=== PATIENT | male | born 1950 | race American Indian/Alaskan Native ===

== ENCOUNTER 2017-07-08 13:08 | Emergency (ER) | payer OTHER ==
[2017-07-08] MEDS ORDERED: Sodium Chloride 0.9% 10 ML Syringe FLUSH PRN (13:20)
[2017-07-08] MEDS ORDERED: Sodium Chloride 0.9% 2.5 ML Syringe FLUSH PRN (13:20)
[2017-07-08] MEDS ORDERED: Morphine 4 MG/ML Syringe IVPUSH ONE ×4 (13:23→17:06)
[2017-07-08] MEDS ORDERED: Ondansetron 4 MG/2 ML SDV IVPUSH ONE (13:24)
--- NOTE | 2017-07-08 13:28 | EDM.PDOC ---
ED HPI GENERAL MEDICAL PROBLEM - General Chief Complaint: Abdominal Pain Stated Complaint: AMB Time Seen by Provider: 07/08/17 13:15 Source of Information: Reports: Patient History Limitations: Reports: No Limitations - History of Present Illness INITIAL COMMENTS - FREE TEXT/NARRATIVE: HISTORY AND PHYSICAL: History of present illness: [This is a 66-year-old male brought in by EMS for right upper quadrant abdominal pain 3 days. Fentanyl 100mcg and zofran 4mg given in transport. Patient has a history of pancreatitis and biliary stent. Patient is somewhat of a poor historian. He states the abdominal pain is worse today. He denies fevers , vomiting, or diarrhea. He denies any recent alcohol use. He denies chest pain , cough, shortness breath] Review of systems: As per history of present illness and below otherwise all systems reviewed and negative. Past medical history: As per history of present illness and as reviewed below otherwise noncontributory. Surgical history: As per history of present illness and as reviewed below otherwise noncontributory. Social history: No reported history of drug or alcohol abuse. Family history: As per history of present illness and as reviewed below otherwise noncontributory. Physical exam: HEENT: Atraumatic, normocephalic, pupils reactive, negative for conjunctival pallor or scleral icterus, mucous membranes moist, throat clear, neck supple, nontender, trachea midline. Lungs: Clear to auscultation, breath sounds equal bilaterally, chest nontender. Heart: S1S2, irregular, negative for clicks, rubs, or JVD. Abdomen: Significant tenderness to light palpation to the epigastric and right upper quadrant. Abdomen mildly distended. Pelvis: Stable nontender. Genitourinary: Deferred. Rectal: Deferred. Extremities: Atraumatic, negative for cords or calf pain. Neurovascular unremarkable. Neuro: Awake, alert, oriented. Cranial nerves II through XII unremarkable. Cerebellum unremarkable. Motor and sensory unremarkable throughout. Exam nonfocal. Diagnostics: [EKG CT abdomen and pelvis with contrast CBC, CMP, lipase, amylase, EtOH.] Therapeutics: [Morphine 2 mg Zofran 4 mg Diltiazem 20 mg] Impression: [New onset atrial fibrillation Abdominal pain, right upper quadrant Hepatic mass] Plan: Patient evaluated by Dr. Dukes in ED and is being transferred to [facility] in [place], [place]. Definitive disposition and diagnosis as appropriate pending reevaluation and review of above. Onset: Sudden Duration: Day(s): (3), Getting Worse Location: Reports: Abdomen Quality: Reports: Sharp Severity: Severe Improves with: Reports: None Worsens with: Reports: None Associated Symptoms: Denies: Chest Pain, Cough, Diaphoresis, Fever/Chills, Nausea/Vomiting, Shortness of Breath Right Lower Abdomen Pain Score (Numeric/FACES): 8 - Related Data Allergies Allergy/AdvReac Type Severity Reaction Status Date / Time No Known Allergies Allergy Verified 01/14/16 11:03 Home Meds: Home Meds Another Bp Med 07/08/17 [History] Losartan [Cozaar] 100 mg PO DAILY 07/08/17 [History] Past Medical History Cardiovascular History: Reports: Hypertension Gastrointestinal History: Reports: GI Bleed Psychiatric History: Reports: Anxiety, Depression - Past Surgical History Other GI Surgeries/Procedures: pancreatic shunt Social & Family History - Family History Family Medical History: Unobtainable - Tobacco Use Smoking Status *Q: Never Smoker - Caffeine Use Caffeine Use: Reports: None - Recreational Drug Use Recreational Drug Use: No ED ROS GENERAL - Review of Systems Review Of Systems: ROS reveals no pertinent complaints other than HPI. ED EXAM, GI/ABD - Physical Exam Exam: See Below (see dictation) Course - Vital Signs Last Recorded V/S: Last Vital Signs Temp 36.1 C 07/08/17 13:19 Pulse 107 H 07/08/17 16:19 Resp 18 07/08/17 16:19 BP 119/79 07/08/17 16:19 Pulse Ox 96 07/08/17 16:19 - Orders/Labs/Meds Orders: Active Orders 24 hr Category Date Time Status EKG Documentation Completion [RC] STAT Care 07/08/17 14:47 Active Abdomen Pelvis w Cont [CT] Stat Exams 07/08/17 13:22 Taken AMMONIA VENOUS [CHEM] Stat Lab 07/08/17 16:02 Ordered CULTURE BLOOD [BC] Stat Lab 07/08/17 16:28 Ordered CULTURE BLOOD [BC] Stat Lab 07/08/17 16:28 Ordered LACTIC ACID,WHOLE BLOOD [BG] Stat Lab 07/08/17 16:36 Ordered Piperacillin/Tazobactam [Piperacil-Tazobact] 4.5 gm Med 07/08/17 16:15 Active Sodium Chloride 0.9% [Normal Saline] 100 ml IV Q6H Sodium Chloride 0.9% [Normal Saline] 1,000 ml Med 07/08/17 16:29 Active IV .Bolus Sodium Chloride 0.9% [Saline Flush] Med 07/08/17 13:20 Active 10 ml FLUSH ASDIRECTED PRN Sodium Chloride 0.9% [Saline Flush] Med 07/08/17 13:20 Active 2.5 ml FLUSH ASDIRECTED PRN Vancomycin 1,000 mg Med 07/08/17 16:27 Active Dextrose 5% in Water 250 ml IV ONETIME Blood Culture x2 Reflex Set [OM.PC] Stat Oth 07/08/17 16:28 Ordered Saline Lock Insert [OM.PC] Stat Oth 07/08/17 13:20 Ordered Medication Orders Piperacillin Sod/Tazobactam (Sod 4.5 gm/ Sodium Chloride) 100 mls @ 100 mls/hr IV Q6H VIVIENNE Last Admin: 07/08/17 17:00 Dose: 100 mls/hr Vancomycin HCl 1,000 mg/ (Dextrose/Water) 250 mls @ 167 mls/hr IV ONETIME ONE Stop: 07/08/17 17:56 Sodium Chloride (Normal Saline) 1,000 mls @ 999 mls/hr IV .Bolus ONE Stop: 07/08/17 17:29 Last Admin: 07/08/17 16:55 Dose: 999 mls/hr Sodium Chloride (Saline Flush) 10 ml FLUSH ASDIRECTED PRN PRN Reason: Keep Vein Open Sodium Chloride (Saline Flush) 2.5 ml FLUSH ASDIRECTED PRN PRN Reason: Keep Vein Open Labs: Laboratory Tests 07/08/17 07/08/17 Range/Units 13:28 13:28 WBC 14.47 H (4.0-11.0) K/uL RBC 3.67 L (4.50-5.90) M/uL Hgb 11.7 L (13.0-17.0) g/dL Hct 35.0 L (38.0-50.0) % MCV 95.4 (80.0-98.0) fL MCH 31.9 (27.0-32.0) pg MCHC 33.4 (31.0-37.0) g/dL RDW Std Deviation 61.6 (28.0-62.0) fl RDW Coeff of Lucita 18 H (11.0-15.0) % Plt Count 95 L (150-400) K/uL MPV 12.70 H (7.40-12.00) fL Add Manual Diff YES Neutrophils % (Manual) 71 (48.0-80.0) % Band Neutrophils % 16 % Lymphocytes % (Manual) 9 L (16.0-40.0) % Monocytes % (Manual) 4 (0.0-15.0) % Nucleated RBC % 0.2 /100WBC Absolute Seg Neuts 10.3 H (1.4-5.7) Band Neutrophils # 2.3 Lymphocytes # (Manual) 1.3 (0.6-2.4) Monocytes # (Manual) 0.6 (0.0-0.8) Nucleated RBCs # 0 K/uL Sodium 137 (136-148) mmol/L Potassium 3.3 L (3.5-5.1) mmol/L Chloride 102 (98-107) mmol/L Carbon Dioxide 14.8 L (21.0-32.0) mmol/L BUN 52 H (7.0-18.0) mg/dL Creatinine 1.4 H (0.8-1.3) mg/dL Est Cr Clr Drug Dosing TNP Estimated GFR (MDRD) 51.0 ml/min Glucose 226 H (74-106) mg/dL Calcium 9.5 (8.5-10.1) mg/dL Total Bilirubin 2.3 H (0.2-1.0) mg/dL AST 48 H (15-37) IU/L ALT 77 H (14-63) IU/L Alkaline Phosphatase 562 H (46-116) U/L Total Protein 6.4 (6.4-8.2) g/dL Albumin 2.0 L (3.4-5.0) g/dL Globulin 4.4 H (2.0-3.5) g/dL Albumin/Globulin Ratio 0.5 L (1.3-2.8) Amylase 9 L (25-115) U/L Lipase 54 L (73-393) U/L Ethyl Alcohol <3 mg/dL Meds: Medications Generic Name Dose Route Start Last Admin Trade Name Freq PRN Reason Stop Dose Admin Piperacillin Sod/Tazobactam 100 mls @ 100 mls/hr 07/08/17 16:15 07/08/17 17: 00 Sod 4.5 gm/ Sodium Chloride IV 100 mls/hr Q6H VIVIENNE Administration Vancomycin HCl 1,000 mg/ 250 mls @ 167 mls/hr 07/08/17 16:27 Dextrose/Water IV 07/08/17 17:56 ONETIME ONE Sodium Chloride 1,000 mls @ 999 mls/hr 07/08/17 16:29 07/08/17 16:55 Normal Saline IV 07/08/17 17:29 999 mls/hr .Bolus ONE Administration Sodium Chloride 10 ml 07/08/17 13:20 Saline Flush FLUSH ASDIRECTED PRN Keep Vein Open Sodium Chloride 2.5 ml 07/08/17 13:20 Saline Flush FLUSH ASDIRECTED PRN Keep Vein Open Discontinued Medications Generic Name Dose Route Start Last Admin Trade Name Freq PRN Reason Stop Dose Admin Diltiazem HCl 20 mg 07/08/17 15:31 07/08/17 15:34 Diltiazem IVPUSH 07/08/17 15:32 20 mg ONETIME ONE Administration Diltiazem HCl Confirm 07/08/17 15:32 07/08/17 15:35 Diltiazem Administered 07/08/17 15:33 Not Given Dose 25 mg .ROUTE .STK-MED ONE Sodium Chloride 1,000 mls @ 999 mls/hr 07/08/17 14:00 07/08/17 14:08 Normal Saline IV 07/08/17 15:00 999 mls/hr STAT ONE Administration Iopamidol 75 ml 07/08/17 15:45 07/08/17 15:46 Isovue Multipack-370 (76%) IVPUSH 07/08/17 15:46 75 ml ONETIME STA Administration Morphine Sulfate 2 mg 07/08/17 13:23 07/08/17 13:30 Morphine IVPUSH 07/08/17 13:24 2 mg ONETIME ONE Administration Morphine Sulfate 2 mg 07/08/17 14:47 07/08/17 14:52 Morphine IVPUSH 07/08/17 14:48 2 mg ONETIME ONE Administration Morphine Sulfate 4 mg 07/08/17 17:06 Morphine IVPUSH 07/08/17 17:07 ONETIME ONE Ondansetron HCl 4 mg 07/08/17 13:24 07/08/17 13:30 Zofran IVPUSH 07/08/17 13:25 4 mg ONETIME ONE Administration Piperacillin Sod/Tazobactam Sod Confirm 07/08/17 16:59 07/08/17 17:03 Piperacil-Tazobact Administered 07/08/17 17:00 Not Given Dose 4.5 gm .ROUTE .STK-MED ONE Departure - Departure Time of Disposition: 17:08 Disposition: DC/Tfer to Acute Hospital 02 Condition: Undetermined Clinical Impression: Abdominal pain - Discharge Information Referrals: PCP,None [Primary Care Provider] - Forms: ED Department Discharge - My Orders Last 24 Hours: My Active Orders 07/08/17 13:20 Sodium Chloride 0.9% [Saline Flush] 10 ml FLUSH ASDIRECTED PRN Sodium Chloride 0.9% [Saline Flush] 2.5 ml FLUSH ASDIRECTED PRN Saline Lock Insert [OM.PC] Stat 07/08/17 13:22 Abdomen Pelvis w Cont [CT] Stat 07/08/17 14:47 EKG Documentation Completion [RC] STAT 07/08/17 16:02 AMMONIA VENOUS [CHEM] Stat - Assessment/Plan Last 24 Hours: My Active Orders 07/08/17 13:20 Sodium Chloride 0.9% [Saline Flush] 10 ml FLUSH ASDIRECTED PRN Sodium Chloride 0.9% [Saline Flush] 2.5 ml FLUSH ASDIRECTED PRN Saline Lock Insert [OM.PC] Stat 07/08/17 13:22 Abdomen Pelvis w Cont [CT] Stat 07/08/17 14:47 EKG Documentation Completion [RC] STAT 07/08/17 16:02 AMMONIA VENOUS [CHEM] Stat
[2017-07-08 13:57] LABS: CHLORIDE,CL 102 mmol/L (98-107); SODIUM,NA 137 mmol/L (136-148)
[2017-07-08] MEDS ORDERED: Sodium Chloride 0.9% 1,000 ML IV ONE ×2 (14:00→16:29)
[2017-07-08] MEDS ORDERED: Diltiazem 25 MG/5 ML SDV IVPUSH ONE (15:31)
[2017-07-08] MEDS ORDERED: Diltiazem 25 MG/5 ML SDV ONE (15:32)
[2017-07-08] MEDS ORDERED: Iopamidol 755 MG/ML 200 ML Multipack Bottle IVPUSH STA (15:45)
[2017-07-08] MEDS ORDERED: Piperacillin/Tazobactam 4.5 GM in Sodium Chloride 0.9% 100 ML IV SCH (16:15)
--- NOTE | 2017-07-08 16:36 | PCM.CONS ---
H&P History of Present Illness - History of Present Illness Initial Comments - Free Text/Narative: 66 yo male with pmh of biliary stent placement in 2016. 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 He has been following up with [facility] in [place] and he stated he was supposed to have his stent looked at in 2017 but was not referred. He presents to the ED today with four days of abdominal pain, fevers, and chills. He was noted to have new onset atrial fibrillation with HR in 100s-120s. Labs were significant for WBC of 14,470, total bilirubin of 2.3, AST 48, ALt 47, Alk phos of 562, and Lipase of 54. CT of abdomen reported biliary stent with intrahepatic biliary dilation with atrophy of the left lobe of the liver. minimal amount of perihatpitic ascites with small amount of fluid in the right pericolic gutter. New 6.2, by 5.7 centimeter lesion with the right inferior lobe of the liver suspicious for malignancy. Right Lower Abdomen Pain Score (Numeric/FACES): 9 - Related Data Allergies/Adverse Reactions: Allergies Allergy/AdvReac Type Severity Reaction Status Date / Time No Known Allergies Allergy Verified 01/14/16 11:03 Home Medications: Home Meds Another Bp Med 07/08/17 [History] Losartan [Cozaar] 100 mg PO DAILY 07/08/17 [History] Past Medical History Cardiovascular History: Reports: Hypertension Respiratory History: Reports: Pneumonia, Recurrent Gastrointestinal History: Reports: GI Bleed Psychiatric History: Reports: Anxiety, Depression - Past Surgical History Other GI Surgeries/Procedures: pancreatic shunt Social & Family History - Family History Family Medical History: Unobtainable - Tobacco Use Smoking Status *Q: Never Smoker - Caffeine Use Caffeine Use: Reports: None - Recreational Drug Use Recreational Drug Use: No H&P Review of Systems - Review of Systems: Review Of Systems: ROS reveals no pertinent complaints other than HPI. Exam - Exam Exam: See Below - Vital Signs Vital Signs: Last Vital Signs Temp 36.1 C 07/08/17 13:19 Pulse 107 H 07/08/17 16:19 Resp 18 07/08/17 16:19 BP 119/79 07/08/17 16:19 Pulse Ox 96 07/08/17 16:19 Weight: 77.111 kg - Exam General: Alert, Oriented HEENT: Mucosa Moist & [place] Neck: Supple, Trachea Midline Lungs: Clear to Auscultation, Normal Respiratory Effort Cardiovascular: Regular Rate, Irregular Rhythm GI/Abdominal Exam: Normal Bowel Sounds, Tender Extremities: No Pedal Edema - Patient Data Lab Results Last 24 hrs: Laboratory Results - last 24 hr 07/08/17 07/08/17 Range/Units 13:28 13:28 WBC 14.47 H (4.0-11.0) K/uL RBC 3.67 L (4.50-5.90) M/uL Hgb 11.7 L (13.0-17.0) g/dL Hct 35.0 L (38.0-50.0) % MCV 95.4 (80.0-98.0) fL MCH 31.9 (27.0-32.0) pg MCHC 33.4 (31.0-37.0) g/dL RDW Std Deviation 61.6 (28.0-62.0) fl RDW Coeff of Lucita 18 H (11.0-15.0) % Plt Count 95 L (150-400) K/uL MPV 12.70 H (7.40-12.00) fL Add Manual Diff YES Neutrophils % (Manual) 71 (48.0-80.0) % Band Neutrophils % 16 % Lymphocytes % (Manual) 9 L (16.0-40.0) % Monocytes % (Manual) 4 (0.0-15.0) % Nucleated RBC % 0.2 /100WBC Absolute Seg Neuts 10.3 H (1.4-5.7) Band Neutrophils # 2.3 Lymphocytes # (Manual) 1.3 (0.6-2.4) Monocytes # (Manual) 0.6 (0.0-0.8) Nucleated RBCs # 0 K/uL Sodium 137 (136-148) mmol/L Potassium 3.3 L (3.5-5.1) mmol/L Chloride 102 (98-107) mmol/L Carbon Dioxide 14.8 L (21.0-32.0) mmol/L BUN 52 H (7.0-18.0) mg/dL Creatinine 1.4 H (0.8-1.3) mg/dL Est Cr Clr Drug Dosing TNP Estimated GFR (MDRD) 51.0 ml/min Glucose 226 H (74-106) mg/dL Calcium 9.5 (8.5-10.1) mg/dL Total Bilirubin 2.3 H (0.2-1.0) mg/dL AST 48 H (15-37) IU/L ALT 77 H (14-63) IU/L Alkaline Phosphatase 562 H (46-116) U/L Total Protein 6.4 (6.4-8.2) g/dL Albumin 2.0 L (3.4-5.0) g/dL Globulin 4.4 H (2.0-3.5) g/dL Albumin/Globulin Ratio 0.5 L (1.3-2.8) Amylase 9 L (25-115) U/L Lipase 54 L (73-393) U/L Ethyl Alcohol <3 mg/dL Result Diagrams: 07/08/17 13:28 07/08/17 13:28 Consult PN Assessment/Plan Procedures: Procedures ASSAY OF LIPASE (01/14/16) ASSAY OF NATRIURETIC PEPTIDE (01/14/16) ASSAY OF TROPONIN QUANT (01/14/16) CHEST X-RAY 2VW FRONTAL&LATL (01/14/16) COMPLETE CBC W/AUTO DIFF WBC (01/14/16) COMPREHEN METABOLIC PANEL (01/14/16) CT ABD & PELVIS W/O CONTRAST (01/14/16) ELECTROCARDIOGRAM TRACING (01/14/16) EMERGENCY DEPT VISIT (01/14/16) EVALUATE PT USE OF INHALER (01/14/16) HYDRATE IV INFUSION ADD-ON (01/14/16) ROUTINE VENIPUNCTURE (01/14/16) THER/PROPH/DIAG INJ IV PUSH (01/14/16) TX/PRO/DX INJ NEW DRUG ADDON (01/14/16) URINALYSIS AUTO W/SCOPE (01/14/16) Problem List Initiated/Reviewed/Updated: Yes My Orders Last 24 Hours: My Active Orders 07/08/17 16:15 Piperacillin/Tazobactam [Piperacil-Tazobact] 4.5 gm Sodium Chloride 0.9% [ Normal Saline] 100 ml IV Q6H 07/08/17 16:27 Vancomycin 1,000 mg Dextrose 5% in Water 250 ml IV ONETIME 07/08/17 16:28 CULTURE BLOOD [BC] Stat CULTURE BLOOD [BC] Stat Blood Culture x2 Reflex Set [OM.PC] Stat 07/08/17 16:29 Sodium Chloride 0.9% [Normal Saline] 1,000 ml IV .Bolus Plan: 66 yo male with pmh of biliary stent in 2016 presenting with abdominal pain, subjective fevers, new onset atrial fibrillation, leukocytosis and elevatated LFTs suspicious for sepsis with colangitis. Blood cultures were obtained, he was given zosyn, vancomycin and fluid bolus. I talked with Dr. Acevedo the GI specialist in [facility] who recommended transferring for removal and replacement of biliary stent. I spoke with Dr. Akins who has accepted the patient. Ground transportation was arranged.
[2017-07-08] MEDS ORDERED: Piperacillin/Tazobactam 4.5 GM AdvVial ONE (16:59)
[2017-07-08 17:12] VITALS: BP 116/79
[2017-07-08] MEDS ORDERED: Vancomycin 1 GM AdvVial ONE (17:46)
[2017-07-08] MEDS ORDERED: Sodium Chloride 0.9% 250 ML ONE (17:47)
--- NOTE | 2017-07-09 15:57 | CT ---
EXAM DATE: 07/08/17 PATIENT'S AGE: 66 Patient: GIFTY BARRON Facility: [place], [place] Site . Site : 1950 Study: CT Abdomen/Pelvis [id number] 2:51:12 PM Ordering Physician: Doctor Aleman Final Report: Pain. Technique contrast-enhanced CT abdomen and pelvis with coronal sagittal reformatted images obtained. 75 mL Isovue-370 COMPARISON: CT report is available from a CT scan dated 01/14/2016. No images are available. Findings: Emphysema. Basilar atelectasis. No significant effusion. Intrahepatic biliary dilatation with atrophy of the left lobe of the liver. By report this was present on the prior study. Biliary stent present with air within the biliary stent. New mass measuring 6.2 x 5.7 centimeters in the right inferior lobe of the liver. Small amount of perihepatic ascites. Spleen is enlarged measuring 16.7 cm. Pancreas, adrenal glands are unremarkable. The kidneys appear unremarkable. Atherosclerotic calcification of the abdominal aorta non aneurysmal. Small aortocaval retroperitoneal nodes present. Urinary bladder is unremarkable. Prostate gland is unremarkable. There is diverticulosis is. Normal appendix. Small amount of fluid within the right pericolic gutter. There may be some mild right sided mesenteric edema. No suspicious bony lesions. Impression : 1. New 6.2 x 5.7 centimeter lesion within the right inferior lobe of the liver suspicious for malignancy tissue sampling would be recommended. 2. Intrahepatic biliary dilatation with atrophy of the left lobe of the liver by report was present. Biliary stent. 3. Minimal amount of perihepatic ascites with small amount of fluid in the right pericolic gutter. Small aortocaval retroperitoneal nodes. 4. Splenomegaly. 5. Diverticulosis. Please note that all CT scans at this facility use dose modulation, iterative reconstruction, and/or weight-based dosing when appropriate to reduce radiation dose to as low as reasonably achievable. Dictated by Janee Pimentel MD @ Jul 08 2017 2:56PM (Electronic Signature) Report Signed by Proxy. [facility]OSPITALOlivia
== END 2017-07-08 18:00 ==
LOC: MW.ED 13:08
DX: R10.11 Right upper quadrant pain (principal); I48.91 Unspecified atrial fibrillation; R16.0 Hepatomegaly, not elsewhere classified; I10 Essential (primary) hypertension; Z79.899 Other long term (current) drug therapy
CPT/HCPCS: 36415; 74177; 80053; 82140; 82150; 83605; 83690; 85025; 87040; 87186; 93005; 96361; 96365; 96375; 96376; 99285; G0480; J2270; J2405; J2543; J3370; J3490; J7030; J7040; J7060; Q9967; 99283

== ENCOUNTER 2021-07-26 11:34 | Emergency (ER) | payer MEDICARE, OTHER ==
[2021-07-26 14:24] VITALS: BP 151/85; PULSE 74
== END 2021-07-26 12:20 | disposition home or self-care (01) ==
LOC: MW.ED 11:34
DX: Z13.9 Encounter for screening, unspecified (principal); I10 Essential (primary) hypertension; I48.91 Unspecified atrial fibrillation; F41.9 Anxiety disorder, unspecified; K21.9 Gastro-esophageal reflux disease without esophagitis; Z79.899 Other long term (current) drug therapy; Z88.6 Allergy status to analgesic agent; Z91.018 Allergy to other foods
CPT/HCPCS: 93005; 93010; 99282; 99284-25

== ENCOUNTER 2021-09-27 14:57 | Emergency (ER) | payer MEDICARE, OTHER ==
[2021-09-27] MEDS ORDERED: Ondansetron 4 MG/2 ML SDV IVPUSH ONE (15:00)
[2021-09-27] MEDS ORDERED: Morphine 4 MG/ML VIAL IVPUSH ONE (15:00)
[2021-09-27] MEDS ORDERED: Sodium Chloride 0.9% 1,000 ML IV ONE (15:00)
[2021-09-27 15:08] VITALS: BP 96/59; PULSE 64
[2021-09-27 15:43] LABS: CARBON DIOXIDE,CO2 24.7 mmol/L (21.0-32.0); POTASSIUM,K 3.8 mmol/L (3.5-5.1)
[2021-09-27] MEDS ORDERED: Iopamidol 755 MG/ML 500 ML Multipack Bottle IVPUSH STA (16:08)
[2021-09-27] MEDS ORDERED: HYDROmorphone 1 MG/ML Syringe IVPUSH ONE (16:45)
[2021-09-27] MEDS ORDERED: Dextrose 5%-Lactated Ringers 1,000 ML IV SCH (17:00)
== END 2021-09-27 17:07 | disposition left against medical advice (07) ==
LOC: MW.ED 14:57
DX: K40.90 Unilateral inguinal hernia, without obstruction or gangrene, not specified as recurrent (principal); K21.9 Gastro-esophageal reflux disease without esophagitis; I10 Essential (primary) hypertension; Z90.49 Acquired absence of other specified parts of digestive tract; Z79.899 Other long term (current) drug therapy; Z88.6 Allergy status to analgesic agent; Z91.018 Allergy to other foods
CPT/HCPCS: 36415; 74177; 80053; 80307; 83605; 85025; 93005; 96374; 96375; 99284; J2270; J2405; J7030; Q9967

== ENCOUNTER 2021-11-02 06:33 | Day surgery (SDC) | payer MEDICARE, OTHER ==
[~2021-11-02 06:33] MED LIST: Acetaminophen 1,000 MG in Premix Bag 1 BAG IV SCH; Albuterol 0.083% 2.5 MG/3 ML Neb Soln NEB PRN; HYDROmorphone 1 MG/ML Syringe IVPUSH PRN; Lactated Ringers 1,000 ML IV SCH; Metoclopramide 10 MG/2 ML SDV IVPUSH PRN; Morphine 4 MG/ML VIAL IVPUSH PRN; Naloxone 0.4 MG/ML SDV IVPUSH PRN; Ondansetron 4 MG/2 ML SDV IVPUSH PRN; Pregabalin 75 MG Cap PO SCH; ceFAZolin 2 GM in Premix Bag 1 BAG IV SCH; fentaNYL 50 MCG/ML SDV IVPUSH PRN
[2021-11-02] MEDS ORDERED: Ropivacaine 0.5% 5 MG/ML 30 ML SDV ONE (07:22)
[2021-11-02] MEDS ORDERED: Bupivacaine 0.25%/EPINEPHrine 1:200,000 10 ML SDV ONE (07:22)
[2021-11-02] MEDS ORDERED: Bupivacaine 0.5% 30 ML SDV ONE (07:24)
[2021-11-02] MEDS ORDERED: Octyl 2-Cyanoacrylate 1 Tube ONE (07:25)
[2021-11-02] MEDS ORDERED: Propofol 200 MG/20 ML SDV ONE (07:33)
[2021-11-02] MEDS ORDERED: fentaNYL 250 MCG/5 ML SDV ONE (07:33)
[2021-11-02] MEDS ORDERED: fentaNYL 100 MCG/2 ML SDV ONE (08:47)
[2021-11-02] MEDS ORDERED: propofoL 100 ML ONE (09:52)
[2021-11-02] MEDS ORDERED: HYDROmorphone 2 MG/ML Syringe ONE (09:53)
[2021-11-02 11:26] VITALS: BP 148/78; PULSE 59
== END 2021-11-02 11:45 | disposition home or self-care (01) ==
LOC: MW.SDS 06:33
PROVIDERS: ATTEND Surgery
DX: K40.90 Unilateral inguinal hernia, without obstruction or gangrene, not specified as recurrent (principal); F17.210 Nicotine dependence, cigarettes, uncomplicated; F41.9 Anxiety disorder, unspecified; N40.0 Benign prostatic hyperplasia without lower urinary tract symptoms; K21.9 Gastro-esophageal reflux disease without esophagitis; I10 Essential (primary) hypertension; I48.91 Unspecified atrial fibrillation; M06.9 Rheumatoid arthritis, unspecified; Z88.8 Allergy status to other drugs, medicaments and biological substances; Z79.899 Other long term (current) drug therapy
CPT/HCPCS: 00830; 64486; 88302; A9270-GY; C1781; J0131; J0690; J1170; J2704; J2795; J3010; J3490; J7120

== ENCOUNTER 2022-01-14 18:08 | Emergency (ER) | payer MEDICAID, MEDICARE, OTHER ==
[2022-01-14] MEDS ORDERED: Morphine 4 MG/ML Syringe IVPUSH ONE (18:30)
[2022-01-14] MEDS ORDERED: Ondansetron 4 MG/2 ML SDV IVPUSH ONE (18:30)
[2022-01-14] MEDS ORDERED: Sodium Chloride 0.9% 1,000 ML IV ONE (18:30)
[2022-01-14 18:42] LABS: POTASSIUM,K 3.6 mmol/L (3.5-5.1)
[2022-01-14] MEDS ORDERED: Iopamidol 755 MG/ML 500 ML Multipack Bottle IVPUSH ONE (19:14)
[2022-01-14 20:04] VITALS: BP 142/68; PULSE 77
== END 2022-01-14 20:03 | disposition home or self-care (01) ==
LOC: MW.ED 18:08
DX: K59.00 Constipation, unspecified (principal); I48.91 Unspecified atrial fibrillation; I10 Essential (primary) hypertension; Z91.018 Allergy to other foods; Z88.8 Allergy status to other drugs, medicaments and biological substances; Z79.899 Other long term (current) drug therapy
CPT/HCPCS: 36415; 74177; 80053; 80307; 83605; 83690; 83735; 84484; 85025; 96361; 96374; 96375; 99285; J2270; J2405; J7030; Q9967; 99284

== ENCOUNTER 2022-08-13 17:52 | Emergency (ER) | payer MEDICARE, OTHER ==
[2022-08-13] MEDS ORDERED: Sodium Chloride 0.9% 10 ML Syringe FLUSH PRN (18:04)
[2022-08-13] MEDS ORDERED: Sodium Chloride 0.9% 2.5 ML Syringe FLUSH PRN (18:04)
[2022-08-13 18:10] LABS: BASOPHILS ABSOLUTE AUTO 0.1 K/uL (0.0-0.1); BASOPHILS PERCENT AUTO 0.8 % (0.0-1.5); EOSINOPHILS ABSOLUTE AUTO 0.1 K/uL (0.0-0.7); EOSINOPHILS PERCENT AUTO 0.9 % (0.0-7.0); HEMATOCRIT 37.9 % (38.0-50.0); HEMOGLOBIN 12.8 g/dL (13.0-17.0); LYMPHOCYTES ABSOLUTE AUTO 1.6 K/uL (0.6-2.4); LYMPHOCYTES PERCENT AUTO 21.6 % (16.0-40.0); MEAN CORPUSCULAR HEMOGLOBIN 33.2 pg (27.0-32.0); MEAN CORPUSCULAR HGB CONC 33.8 g/dL (31.0-37.0); MEAN CORPUSCULAR VOLUME 98.2 fL (80.0-98.0); MONOCYTES ABSOLUTE AUTO 0.5 K/uL (0.0-0.8); NEUTROPHILS ABSOLUTE AUTO 5.3 K/uL (1.4-5.7); NEUTROPHILS PERCENT AUTO 70.7 % (48.0-80.0); NRBC ABSOLUTE 0 K/uL; PLATELET COUNT,PLT 312 K/uL (150-400); RED BLOOD CELL COUNT 3.86 M/uL (4.50-5.90); WHITE BLOOD CELL COUNT,WBC 7.47 K/uL (4.0-11.0)
[2022-08-13 18:29] LABS: A/G RATIO 1.1 (0.9-1.6); ALANINE AMINOTRANSFERASE,ALT 20 IU/L (14-63); ALBUMIN 3.3 g/dL (3.4-5.0); ALKALINE PHOSPHATASE 55 U/L (46-116); ASPARTATE AMNIOTRANSFERASE,AST 17 IU/L (15-37); BILIRUBIN TOTAL 0.4 mg/dL (0.2-1.0); BLOOD UREA NITROGEN,BUN 26 mg/dL (7.0-18.0); CALCIUM 8.5 mg/dL (8.5-10.1); CARBON DIOXIDE,CO2 21.1 mmol/L (21.0-32.0); CHLORIDE,CL 105 mmol/L (98-107); CREATININE 1.3 mg/dL (0.8-1.3); GLUCOSE RANDOM 64 mg/dL (74-106); LIPASE 111 U/L (73-393); MAGNESIUM 1.8 mg/dL (1.8-2.4); POTASSIUM,K 3.6 mmol/L (3.5-5.1); PROTEIN TOTAL,TP 6.3 g/dL (6.4-8.2); SODIUM,NA 140 mmol/L (136-148)
[2022-08-13 18:30] LABS: ESTIMATED GFR 59 mL/min (>60)
[2022-08-13] MEDS ORDERED: Morphine 4 MG/ML Syringe IVPUSH STA (18:32)
[2022-08-13] MEDS ORDERED: 50% Dextrose in Water 50 ML Syringe IVPUSH STA (18:33)
[2022-08-13] MEDS ORDERED: Sodium Chloride 0.9% 500 ML IV STA (18:36)
[2022-08-13] MEDS ORDERED: Magnesium Sulfate/Water 2 GM in Premix Bag 1 BAG IV STA (19:11)
[2022-08-13 19:18] VITALS: BP 93/69; PULSE 71
== END 2022-08-13 20:01 | disposition left against medical advice (07) ==
LOC: MW.ED 17:52
DX: R07.9 Chest pain, unspecified (principal); Z53.29 Procedure and treatment not carried out because of patient's decision for other reasons; K21.9 Gastro-esophageal reflux disease without esophagitis; I48.91 Unspecified atrial fibrillation; I10 Essential (primary) hypertension; Z88.8 Allergy status to other drugs, medicaments and biological substances; Z91.018 Allergy to other foods
CPT/HCPCS: 36415; 71045; 80053; 80307; 83690; 83735; 83880; 84484; 85025; 96361; 96374; 96375; 99285; J2270; J3490; J7030; 93010; 99282

== ENCOUNTER 2022-11-16 13:41 | Emergency (ER) | payer MEDICARE, OTHER ==
[2022-11-16 14:10] VITALS: BP 157/48; PULSE 62
== END 2022-11-16 15:03 ==
LOC: MW.ED 13:41
DX: F32.A Depression, unspecified (principal); F10.129 Alcohol abuse with intoxication, unspecified; I48.91 Unspecified atrial fibrillation; I10 Essential (primary) hypertension; Z91.018 Allergy to other foods; Z88.8 Allergy status to other drugs, medicaments and biological substances; Z72.0 Tobacco use
CPT/HCPCS: 93005; 93010; 99284; 99285

== ENCOUNTER 2025-01-28 11:46 | Inpatient (IN) | payer MEDICARE, OTHER ==
[2025-01-28] MEDS ORDERED: Sodium Chloride 0.9% 10 ML Syringe FLUSH PRN ×2 (12:10→18:50)
[2025-01-28] MEDS ORDERED: Sodium Chloride 0.9% 2.5 ML Syringe FLUSH PRN ×2 (12:10→18:50)
[2025-01-28 12:25] LABS: BASOPHILS ABSOLUTE AUTO 0.06 K/uL (0.00-0.20); BASOPHILS PERCENT AUTO 0.6 % (0.0-1.0); EOSINOPHILS ABSOLUTE AUTO 0.10 K/uL (0.00-0.45); EOSINOPHILS PERCENT AUTO 1.0 % (0.0-6.0); IMMATURE GRAN ABSOLUTE AUTO 0.12 K/uL (0.00-0.05); IMMATURE GRAN PERCENT AUTO 1.3 % (0.0-0.4); LYMPHOCYTES ABSOLUTE AUTO 0.96 K/uL (1.00-4.80); LYMPHOCYTES PERCENT AUTO 10.0 % (24.0-44.0); MEAN PLATELET VOLUME 9.9 fL (9.4-12.4); MONOCYTES ABSOLUTE AUTO 0.79 K/uL (0.00-0.80); MONOCYTES PERCENT AUTO 8.2 % (0.0-8.0); NEUTROPHILS ABSOLUTE AUTO 7.57 K/uL (1.80-7.70); NEUTROPHILS PERCENT AUTO 78.9 % (41.0-71.0); NRBC ABSOLUTE 0.00 K/uL (0.00-0.02); NRBC PERCENT 0.0 /100WBC (0.0-0.2); PLATELET COUNT,PLT 183 K/uL (150-400); RED BLOOD CELL COUNT 4.27 M/uL (4.52-5.90); WHITE BLOOD CELL COUNT,WBC 9.60 K/uL (3.9-11.3)
[2025-01-28 12:42] LABS: D-DIMER QUANTITATIVE 0.66 mg/L FEU (0.00-0.50); INR 1.06 (0.86-1.11); PTT,PARTIAL THROMBOPLSTIN TIME 26.3 SEC (23.9-30.7)
[2025-01-28 13:03] LABS: A/G RATIO 1.1 (0.9-1.6); ALANINE AMINOTRANSFERASE,ALT 27.0 IU/L (14-63); ASPARTATE AMNIOTRANSFERASE,AST 26.0 IU/L (15-37); BILIRUBIN TOTAL 1.2 mg/dL (0.2-1.0); BLOOD UREA NITROGEN,BUN 25.0 mg/dL (7.0-18.0); CARBON DIOXIDE,CO2 22.2 mmol/L (21.0-32.0); CHLORIDE,CL 105.0 mmol/L (98-107); CREATINE KINASE,CK 27.0 U/L (26-308); CREATININE 1.3 mg/dL (0.8-1.3); EST CRCL DRUG DOSING (CG) 63.06 mL/min; GLUCOSE RANDOM 109.0 mg/dL (74-106); POTASSIUM,K 4.2 mmol/L (3.5-5.1); PRO B-TYPE NATRIUR PEPT,BNPPRO 1375.0 pg/mL (0-125); PROTEIN TOTAL,TP 6.5 g/dL (6.4-8.2); SODIUM,NA 140.0 mmol/L (136-148); TSH ULTRASENSITIVE 3.42 uIU/mL (0.36-3.74)
[2025-01-28 13:07] LABS: ESTIMATED GFR 58.0 mL/min (>60)
[2025-01-28 13:09] LABS: LACTIC ACID 1.5 mmol/L (0.4-2.0)
[2025-01-28] MEDS: Magnesium Sulfate 2 GM/50 mL 2 GM in Premix Bag 1 BAG IV ONE (13:26)
[2025-01-28] MEDS: Iopamidol 755 MG/ML 500 ML Multipack Bottle IVPUSH STA (13:51)
[2025-01-28 16:27] LABS: APPEARANCE,URINE CLEAR; GLUCOSE,URINE NEGATIVE (NEGATIVE); OCCULT BLOOD,URINE NEGATIVE (NEGATIVE)
[2025-01-28] MEDS ORDERED: BUDESONIDE FORMOTEROL INH PRN (18:59)
[2025-01-28] MEDS ORDERED: [UNRECOGNIZED DRUG - REMARK] NASBOTH PRN (18:59)
[2025-01-29 06:10] LABS: BASOPHILS ABSOLUTE AUTO 0.05 K/uL (0.00-0.20); BASOPHILS PERCENT AUTO 0.7 % (0.0-1.0); EOSINOPHILS ABSOLUTE AUTO 0.19 K/uL (0.00-0.45); EOSINOPHILS PERCENT AUTO 2.7 % (0.0-6.0); IMMATURE GRAN ABSOLUTE AUTO 0.07 K/uL (0.00-0.05); IMMATURE GRAN PERCENT AUTO 1.0 % (0.0-0.4); LYMPHOCYTES ABSOLUTE AUTO 1.08 K/uL (1.00-4.80); LYMPHOCYTES PERCENT AUTO 15.2 % (24.0-44.0); MEAN PLATELET VOLUME 10.2 fL (9.4-12.4); MONOCYTES ABSOLUTE AUTO 0.68 K/uL (0.00-0.80); MONOCYTES PERCENT AUTO 9.6 % (0.0-8.0); NEUTROPHILS ABSOLUTE AUTO 5.03 K/uL (1.80-7.70); NEUTROPHILS PERCENT AUTO 70.8 % (41.0-71.0); NRBC ABSOLUTE 0.00 K/uL (0.00-0.02); NRBC PERCENT 0.0 /100WBC (0.0-0.2); PLATELET COUNT,PLT 201 K/uL (150-400); RED BLOOD CELL COUNT 4.24 M/uL (4.52-5.90); WHITE BLOOD CELL COUNT,WBC 7.10 K/uL (3.9-11.3)
[2025-01-29 06:33] LABS: A/G RATIO 1.1 (0.9-1.6); ALANINE AMINOTRANSFERASE,ALT 27.0 IU/L (14-63); ASPARTATE AMNIOTRANSFERASE,AST 22.0 IU/L (15-37); BILIRUBIN TOTAL 1.0 mg/dL (0.2-1.0); BLOOD UREA NITROGEN,BUN 20.0 mg/dL (7.0-18.0); CARBON DIOXIDE,CO2 26.2 mmol/L (21.0-32.0); CHLORIDE,CL 105.0 mmol/L (98-107); CREATININE 0.9 mg/dL (0.8-1.3); EST CRCL DRUG DOSING (CG) 89.72 mL/min; ESTIMATED GFR 91.0 mL/min (>60); GLUCOSE RANDOM 95.0 mg/dL (74-106); POTASSIUM,K 4.0 mmol/L (3.5-5.1); PROTEIN TOTAL,TP 6.2 g/dL (6.4-8.2); SODIUM,NA 143.0 mmol/L (136-148)
[2025-01-29] MEDS: Diltiazem 180 MG Cap.CD PO SCH (08:16)
[2025-01-29] MEDS: Ondansetron 4 MG Tab.DIS PO PRN (11:10)
[2025-01-29] MEDS: FLU (Fluad Triv) 25-26 (65UP)/MF59C/PF 45 MCG/0.5 ML Syringe IM ONE (12:45)
[2025-01-30 05:42] LABS: BASOPHILS ABSOLUTE AUTO 0.05 K/uL (0.00-0.20); BASOPHILS PERCENT AUTO 0.6 % (0.0-1.0); EOSINOPHILS ABSOLUTE AUTO 0.18 K/uL (0.00-0.45); EOSINOPHILS PERCENT AUTO 2.3 % (0.0-6.0); IMMATURE GRAN ABSOLUTE AUTO 0.05 K/uL (0.00-0.05); IMMATURE GRAN PERCENT AUTO 0.6 % (0.0-0.4); LYMPHOCYTES ABSOLUTE AUTO 1.28 K/uL (1.00-4.80); LYMPHOCYTES PERCENT AUTO 16.5 % (24.0-44.0); MEAN PLATELET VOLUME 10.3 fL (9.4-12.4); MONOCYTES ABSOLUTE AUTO 0.77 K/uL (0.00-0.80); MONOCYTES PERCENT AUTO 9.9 % (0.0-8.0); NEUTROPHILS ABSOLUTE AUTO 5.45 K/uL (1.80-7.70); NEUTROPHILS PERCENT AUTO 70.1 % (41.0-71.0); NRBC ABSOLUTE 0.00 K/uL (0.00-0.02); NRBC PERCENT 0.0 /100WBC (0.0-0.2); PLATELET COUNT,PLT 235 K/uL (150-400); RED BLOOD CELL COUNT 4.26 M/uL (4.52-5.90); WHITE BLOOD CELL COUNT,WBC 7.78 K/uL (3.9-11.3)
[2025-01-30 06:09] LABS: BLOOD UREA NITROGEN,BUN 20.0 mg/dL (7.0-18.0); CARBON DIOXIDE,CO2 28.4 mmol/L (21.0-32.0); CHLORIDE,CL 104.0 mmol/L (98-107); CREATININE 0.9 mg/dL (0.8-1.3); EST CRCL DRUG DOSING (CG) 89.72 mL/min; GLUCOSE RANDOM 102.0 mg/dL (74-106); POTASSIUM,K 4.3 mmol/L (3.5-5.1); SODIUM,NA 141.0 mmol/L (136-148)
[2025-01-30 06:20] LABS: ESTIMATED GFR 91.0 mL/min (>60)
[2025-01-31 06:00] LABS: BASOPHILS ABSOLUTE AUTO 0.06 K/uL (0.00-0.20); BASOPHILS PERCENT AUTO 0.8 % (0.0-1.0); EOSINOPHILS ABSOLUTE AUTO 0.23 K/uL (0.00-0.45); EOSINOPHILS PERCENT AUTO 2.9 % (0.0-6.0); IMMATURE GRAN ABSOLUTE AUTO 0.05 K/uL (0.00-0.05); IMMATURE GRAN PERCENT AUTO 0.6 % (0.0-0.4); LYMPHOCYTES ABSOLUTE AUTO 1.41 K/uL (1.00-4.80); LYMPHOCYTES PERCENT AUTO 17.7 % (24.0-44.0); MEAN PLATELET VOLUME 10.1 fL (9.4-12.4); MONOCYTES ABSOLUTE AUTO 0.81 K/uL (0.00-0.80); MONOCYTES PERCENT AUTO 10.2 % (0.0-8.0); NEUTROPHILS ABSOLUTE AUTO 5.40 K/uL (1.80-7.70); NEUTROPHILS PERCENT AUTO 67.8 % (41.0-71.0); NRBC ABSOLUTE 0.00 K/uL (0.00-0.02); NRBC PERCENT 0.0 /100WBC (0.0-0.2); PLATELET COUNT,PLT 214 K/uL (150-400); RED BLOOD CELL COUNT 4.22 M/uL (4.52-5.90); WHITE BLOOD CELL COUNT,WBC 7.96 K/uL (3.9-11.3)
[2025-01-31 06:20] LABS: BLOOD UREA NITROGEN,BUN 20.0 mg/dL (7.0-18.0); CARBON DIOXIDE,CO2 28.4 mmol/L (21.0-32.0); CHLORIDE,CL 104.0 mmol/L (98-107); CREATININE 0.8 mg/dL (0.8-1.3); EST CRCL DRUG DOSING (CG) 102.47 mL/min; GLUCOSE RANDOM 93.0 mg/dL (74-106); POTASSIUM,K 4.8 mmol/L (3.5-5.1); SODIUM,NA 139.0 mmol/L (136-148)
[2025-01-31 06:34] LABS: ESTIMATED GFR 94.0 mL/min (>60)
[2025-01-31] MEDS: Magnesium Sulfate 2 GM/50 mL 2 GM in Premix Bag 1 BAG IV ONE (21:38)
[2025-02-01 05:55] LABS: BASOPHILS ABSOLUTE AUTO 0.06 K/uL (0.00-0.20); BASOPHILS PERCENT AUTO 0.8 % (0.0-1.0); EOSINOPHILS ABSOLUTE AUTO 0.28 K/uL (0.00-0.45); EOSINOPHILS PERCENT AUTO 3.5 % (0.0-6.0); IMMATURE GRAN ABSOLUTE AUTO 0.03 K/uL (0.00-0.05); IMMATURE GRAN PERCENT AUTO 0.4 % (0.0-0.4); LYMPHOCYTES ABSOLUTE AUTO 1.50 K/uL (1.00-4.80); LYMPHOCYTES PERCENT AUTO 19.0 % (24.0-44.0); MEAN PLATELET VOLUME 10.1 fL (9.4-12.4); MONOCYTES ABSOLUTE AUTO 0.87 K/uL (0.00-0.80); MONOCYTES PERCENT AUTO 11.0 % (0.0-8.0); NEUTROPHILS ABSOLUTE AUTO 5.17 K/uL (1.80-7.70); NEUTROPHILS PERCENT AUTO 65.3 % (41.0-71.0); NRBC ABSOLUTE 0.00 K/uL (0.00-0.02); NRBC PERCENT 0.0 /100WBC (0.0-0.2); PLATELET COUNT,PLT 261 K/uL (150-400); RED BLOOD CELL COUNT 4.28 M/uL (4.52-5.90); WHITE BLOOD CELL COUNT,WBC 7.91 K/uL (3.9-11.3)
[2025-02-01 06:08] LABS: BLOOD UREA NITROGEN,BUN 23.0 mg/dL (7.0-18.0); CARBON DIOXIDE,CO2 30.8 mmol/L (21.0-32.0); CHLORIDE,CL 102.0 mmol/L (98-107); CREATININE 1.0 mg/dL (0.8-1.3); EST CRCL DRUG DOSING (CG) 76.5 mL/min; GLUCOSE RANDOM 102.0 mg/dL (74-106); POTASSIUM,K 4.3 mmol/L (3.5-5.1); SODIUM,NA 136.0 mmol/L (136-148)
[2025-02-01 06:26] LABS: ESTIMATED GFR 80.0 mL/min (>60)
[2025-02-01 15:59] VITALS: BP 117/72; PULSE 81
== END 2025-02-01 15:59 | disposition home or self-care (01) | DRG 310 ==
LOC: MW.ED 11:46 → MW.MS 18:51 → OBSVTOIN 01-30 14:31 → MW.MS 01-30 14:56
PROVIDERS: ADMIT Internal Medicine; ATTEND Internal Medicine
DX: I48.91 Unspecified atrial fibrillation (principal); I50.9 Heart failure, unspecified; H91.90 Unspecified hearing loss, unspecified ear; K21.9 Gastro-esophageal reflux disease without esophagitis; I11.0 Hypertensive heart disease with heart failure; M06.9 Rheumatoid arthritis, unspecified; F41.9 Anxiety disorder, unspecified; E78.5 Hyperlipidemia, unspecified; K59.00 Constipation, unspecified; Z91.018 Allergy to other foods; Z88.6 Allergy status to analgesic agent; Z88.8 Allergy status to other drugs, medicaments and biological substances; Z79.51 Long term (current) use of inhaled steroids; Z79.899 Other long term (current) drug therapy; Z87.81 Personal history of (healed) traumatic fracture; Z90.49 Acquired absence of other specified parts of digestive tract; Z87.891 Personal history of nicotine dependence
CPT/HCPCS: 36415 ×3; 71045; 71275; 74177; 80048; 80053 ×2; 81003; 82550; 83605; 83690; 83735 ×2; 83880; 84443; 84484 ×2; 85025 ×3; 85379; 85610; 85730; 87086; 90653; 93005 ×2; 93306; 94640; 96361; 96365; 97161; 99285; A9270 ×20; G0008 ×2; G0378 ×6; J3475; J7040; Q9967; 96366; 96375; 96376; 99222; 99232; 99239; J1650; J3490